=== PATIENT | female | born 1985 | race Caucasian/White ===

== ENCOUNTER 2020-06-10 12:59 | Emergency (ER) | payer OTHER, SELFPAY ==
--- NOTE | ~2020-06-10 | CT_ITS ---
EXAMINATION: CT brain wo con EXAM DATE: 06/10/2020 14:06 INDICATION: Headache at the base of skull, right side. TECHNIQUE: Spiral CT of the head was performed without contrast. Axial, coronal and sagittal images were reviewed. The dose-length product (DLP) for this examination was 605.33 mGy-cm. The exposure w as tailored according to patient size, and iterative reconstruction (ASIR) was used as additional dos e reduction technique. There is no prior study for comparison. FINDINGS: There is no acute intraparenchymal hemorrhage. No evidence of intraparenchymal brain mass lesion. No evidence of acute infarction. There is no mass effect or midline shift. The ventricles are normal in size. There are no extra-axial collections. There are no acute calvarial fractures. T he orbits are unremarkable. Soft tissue is unremarkable. The visualized sinuses and mastoid air ariela ls are well aerated. IMPRESSION: 1. Normal head CT examination. Reviewed, dictated and finalized at location B.
[2020-06-10 13:30] VITALS: BP 125/72; PULSE 80; RESP 20; TEMP 37; O2SAT 98
[2020-06-10] MEDS: diphenhydrAMINE HCl INJ 50 MG/ML VIAL 25 MG IV PUSH (13:58)
[2020-06-10] MEDS: KETOROLAC 30 MG/ML VIAL (*BKC) IV PUSH (13:59)
[2020-06-10] MEDS: SODIUM CHLORIDE 0.9% IV 1,000 ML 999 ML IV CONT (14:00)
[2020-06-10] MEDS: ONDANSETRON INJ 4 MG/2 ML VIAL IV PUSH (14:00)
--- NOTE | 2020-06-10 14:20 | ED.HA ---
HPI - Headache General Chief Complaint: Headache Stated Complaint: migraine for two days Time Seen by Provider: 06/10/20 13:03 Source: patient Mode of arrival: ambulatory Limitations: no limitations History of Present Illness HPI Narrative: this is a 34-year-old female presents with a typical migraine headache with throbbing but typically she has migraines with throbbing on the left side of her face this is currently on the right side with some mild light and sound sensitivity sensitivity with some nausea no vomiting headache is similar to her previous migraine headaches has taken [id number] pain medicine and her typical migraine prevention medicine medication with a minimal relief. Currently she rates her pain at about an 8/10, no known injury no neck pain or stiffness no shortness of breath no fever chills no abdominal pain. MD elicited complaint: headache and migraine Onset (ago): day(s) Onset description: gradually Location: frontal and occipital Severity: severe Pain scale (0-10): 8 Quality & Timing: throbbing and similar to previous headaches Exacerbating factors: movement of head/neck Relieving factors: nothing Context: occurred at rest Related Data Allergies Allergy/AdvReac Type Severity Reaction Status Date / Time No Known Allergies Allergy Unverified 04/04/19 12:34 Review of Systems Review of Systems: All systems reviewed & are unremarkable except as noted in HPI and below PMFSH Past Medical History Medical History (Updated 06/10/20 @ 14:25 by Yordan Guillen MD) Migraine Social History Social History Gender identity (if verbalized by the patient): Female Exam Const: General: no acute distress Orientation/consciousness: patient oriented x3 HENMT: Head: normal to inspection Eyes: Conjunctivae: conjunctivae normal Pupils: Equal, round and reactive pupils present EOM: EOMs intact bilaterally Direct Ophthalmoscopy: photophobia Neck: Neck: normal visual inspection Chest: Chest palpation & inspection: normal inspection of the chest GI: GI Palp: Yes Soft to palpation Percussion: Yes normal to percussion : General: Yes no CVA tenderness Skin: General skin exam: normal color Rashes: no rashes Neuro: General: patient oriented x3, moves all extremities and no meningeal signs Psych: Appearance: grossly normal Course Course Emergency Course: a reassessment of patient with some relief of her symptoms with some Toradol, Benadryl and Zofran along with oxygen therapy. Reviewed results of her blood tests and her CT scan which reassured that they were negative. Vital Signs Vital signs: Vital Signs Temperature 37.0 C 06/10/20 13:30 Pulse Rate 80 06/10/20 13:30 Respiratory Rate 06/10/20 13:30 Blood Pressure 125/72 06/10/20 13:30 Pulse Oximetry 98 06/10/20 13:30 Temperature 37.0 C 06/10/20 13:30 Pulse Rate 80 06/10/20 13:30 Respiratory Rate 06/10/20 13:30 Blood Pressure 125/72 06/10/20 13:30 Pulse Oximetry 98 06/10/20 13:30 Critical Care Time Critical Care Time Critical Care Time: No Discharge Plan Discharge Clinical Impression: Migraine Qualifiers: Migraine type: unspecified Intractability: not intractable Patient Disposition: Home, Self-Care Condition: Stable Instructions: Antibiotic Form, Migraine Headache (ED), Acute Headache (ED) Additional Instructions: Take medicine as prescribed and follow-up with primary care physician within 1 week for further evaluation and treatment. Prescriptions: New tramadol [Ultram] 50 mg tablet 50 mg PO Q6H PRN (Reason: pain) Qty: 20 RF: 0 ondansetron HCl [Zofran] 4 mg tablet 4 mg PO Q6H PRN (Reason: nausea and vomiting) Qty: 10 RF: 0 Follow-up/Referrals: Polo Swann MD [Primary Care Provider] - Stand Alone Forms: Work/School Release IP Time of Disposition: 14:28
[2020-06-10 14:46] VITALS: BP 110/65; PULSE 67; RESP 20; O2SAT 100
== END 2020-06-10 14:58 | disposition home or self-care (01) ==
PROVIDERS: Emergency Provider Emergency Medicine; PCP Family Medicine
DX: G43.909 Migraine, unspecified, not intractable, without status migrainosus (principal)
CPT/HCPCS: 70450; 96361; 96374; 96375; 99283; 99284; J1200; J1885; J2405; J7030

== ENCOUNTER 2021-01-04 09:18 | Emergency (ER) | payer OTHER, SELFPAY ==
[2021-01-04 09:25] VITALS: BP 114/56; PULSE 91; RESP 18; TEMP 36.6; O2SAT 98
[2021-01-04] MEDS: SODIUM CHLORIDE 0.9% IV 1,000 ML 999 ML IV CONT (09:40)
[2021-01-04] MEDS: ONDANSETRON INJ 4 MG/2 ML VIAL IV PUSH (09:40)
--- NOTE | 2021-01-04 09:46 | ED.HA ---
HPI - Headache General Chief Complaint: Headache Stated Complaint: MIGRAINE Time Seen by Provider: 01/04/21 09:46 Source: patient Mode of arrival: ambulatory Limitations: no limitations History of Present Illness HPI Narrative: 35-year-old woman with a history migraines comes in today complaining of a bilateral frontal headache and occipital pain that started at approximately 6:00 a.m. this morning. She has had vomiting and has been unable to take her usual medication (oral sumatriptan). she denies any recent head injuries, and other than some nasal congestion that started 2 days ago she has no cough cold symptoms, fever, weakness or numbness. MD elicited complaint: migraine Pertinent past history: migraines Onset (ago): hour(s) (3) Onset description: gradually Location: frontal, occipital and retro-orbital Severity: severe Quality & Timing: throbbing Exacerbating factors: none Context: occurred at rest Associated symptoms: nausea, vomiting and photophobia Related Data Home Medications Medication Instructions Recorded Confirmed sumatriptan succinate 100 mg PO Q2H PRN 01/04/21 01/04/21 Allergies Allergy/AdvReac Type Severity Reaction Status Date / Time No Known Allergies Allergy Unverified 04/04/19 12:34 Review of Systems Review of Systems: All systems reviewed & are unremarkable except as noted in HPI and below Constitutional: Constitutional: Denies chills, Denies fever(s) and Denies weakness Eyes: Eyes: Denies change in vision and Reports photophobia ENT: Reports nasal congestion and Denies sore throat Cardiovascular: Cardiovascular: Denies chest pain and Denies radiating jaw, neck or arm pain Respiratory: Respiratory: Denies cough and Denies dyspnea Gastrointestinal: Gastrointestinal: Denies abdominal pain, Reports nausea and Reports vomiting Integumentary/Breasts: Skin/Breast: Denies pruritus, Denies erythema and Denies rash Neurologic: Denies vertigo, Denies dizziness and Denies syncope Hematologic/Lymphatic: Hematologic/Lymphatic: Denies easy bleeding and Denies easy bruising Allergic/Immunologic: Allergic/Immunologic: Denies lip swelling and Denies throat swelling [facility] Past Medical History Medical History (Updated 01/04/21 @ 09:56 by Edmund Bess MD) Migraine Social History Social History Smoking status: Never smoker Substance use: never Living arrangements: with family Gender identity (if verbalized by the patient): Female Exam Const: General: healthy appearing and alert Orientation/consciousness: patient oriented x3 Limitations: no limitations Other: Moderate acute distress. Photophobia. HENMT: Head: normal to inspection Ears: external ears normal, EAC's normal and Abnormal EAC present General nose exam: Normal nares present Face and sinus: normal facial exam Mouth: Yes moist mucous membranes abnormal Throat: posterior oropharynx normal Eyes: Conjunctivae: conjunctivae normal Pupils: Equal, round and reactive pupils present EOM: EOMs intact bilaterally Direct Ophthalmoscopy: photophobia Neck: Neck: normal visual inspection Other: Normal range of motion Resp: Effort & Inspection: normal respiratory effort and not labored Auscultation: clear to auscultation bilaterally, no rales, no rhonchi and no wheezes Cardio: Rate: regular rate Rhythm: regular rhythm Heart sounds: no murmurs Skin: General skin exam: normal color, no jaundice and no pallor Rashes: no rashes Neuro: General: patient oriented x3, moves all extremities, no focal motor deficits and CN's II-XI intact bilaterally Speech: normal speech Gait exam (Neuro): Normal gait present Extrem: General: normal to inspection and no clubbing, cyanosis or edema Psych: Appearance: grossly normal and well kempt Mental Status: mental status grossly normal Affect: normal affect Attitude: cooperative Thought content: Yes Normal thought tenisha
[2021-01-04] MEDS: SUMAtriptan SUCCINATE 6 MG/0.5 ML VIAL SUB-Q (09:56)
[2021-01-04 10:42] VITALS: BP 113/64; PULSE 74; RESP 16; O2SAT 98
== END 2021-01-04 10:42 | disposition home or self-care (01) ==
PROVIDERS: Emergency Provider Emergency Medicine; PCP Family Medicine
DX: R51.9 Headache, unspecified (principal)
CPT/HCPCS: 96361; 96372; 96374; 99283; 99284; J2405; J3030; J7030

== ENCOUNTER 2021-07-24 11:06 | Emergency (ER) | payer OTHER, SELFPAY ==
[2021-07-24 11:18] VITALS: BP 131/82; PULSE 89; RESP 12; TEMP 36.7; O2SAT 100
--- NOTE | 2021-07-24 11:34 | ED.EAR ---
HPI - Ear Problem General Chief complaint: Dizziness Stated complaint: HEARING LOSS R EAR/RINGING/DIZZY Time Seen by Provider: 07/24/21 11:34 Source: patient and RN notes reviewed Mode of arrival: ambulatory Limitations: no limitations History of Present Illness HPI Narrative: 35-year-old female who is 22 weeks presents with concern of muffled hearing on the right ear, tinnitus in the right ear. Reports history of allergy symptoms for which she takes Zyrtec daily, started taking Flonase with no improvement of your symptoms. Yesterday she began having room spinning dizziness when she moved her head a certain way or open and close her eyes quickly. She denies any thunderclap headache, any extremity, vision changes. Denies shortness of breath or cough. MD Complaint: ear pain and other (Dizziness) Related Data Home Medications Medication Instructions Recorded Confirmed sumatriptan succinate 100 mg PO Q2H PRN 01/04/21 07/24/21 magnesium 200 mg PO DAILY 07/24/21 07/24/21 [id number] fum-folic [id number] pkg PO 07/24/21 [Daily ] Allergies Allergy/AdvReac Type Severity Reaction Status Date / Time No Known Allergies Allergy Verified 07/24/21 11:20 Review of Systems Review of Systems: CONSTITUTIONAL: Denies malaise, chills, sweats, or fever. EYES: Denies visual changes, redness, or discharge. ENT: Reports rhinorrhea, congestion, ear fullness, decreased hearing, tinnitus. Denies sinus pain and sore throat. CARDIOVASCULAR: Denies chest pain, palpitations, or edema. RESPIRATORY: Denies cough. Denies dyspnea. GASTROINTESTINAL: Denies abdominal pain, nausea, vomiting, diarrhea SKIN: Denies rash or itching. MUSCULOSKELETAL: Denies myalgia. NEUROLOGIC: Denies headache. Reports dizziness, room spinning All systems reviewed & are unremarkable except as noted in HPI and below PMFSH Past Medical History Medical History (Updated 07/24/21 @ 11:53 by Marycarmen Gutierrez NP) Migraine Social History Social History Smoking status: Never smoker Substance use: never Gender identity (if verbalized by the patient): Female Comments At time of signature, agree with nursing past medical, surgical, social and family history. There is no relevant family history pertinent to the presenting complaint Exam Narrative: GENERAL: Well-appearing, well-nourished, and in no acute distress. HEAD: Normocephalic EYES: PERRLA, conjunctivae clear ENT: Nares clear, clear discharge. Mucous membranes moist. TM pearly santiago with sharp light reflex bilaterally; no tragal tenderness. Oropharynx not erythematous without lesions. Tonsils not enlarged and without exudate, no drooling, no hoarseness, no trismus, uvula midline. NECK: Supple. No lymphadenopathy CHEST: Clear to auscultation, breath sounds equal. No wheezing, rhonchi, rales, or stridor. No respiratory distress, speaks in full sentences. HEART: Regular rate and rhythm. No murmur heard. SKIN: Warm, dry, no rash. NEURO: Alert and oriented x3. No focal deficits, cranial nerves II through XII grossly intact. Hanny-Hallpike test positive, stronger on the left. PSYCH: Normal mood and affect Course Course Emergency Course: Discussed with patient limited diagnostic capability at the [facility], discussed transfer to emergency room for further evaluation given patient's state. Discussed risk and benefits. Patient chooses to be treated for likely vertigo and understands reasons to go the emergency room if symptoms change or worsen. Patient is aware of diagnosis, understands and agrees to treatment plan. Anticipatory guidance given. Patient agrees to follow-up as directed and is aware of reasons to seek care at the emergency department. Portions of this record may have been created with voice recognition software Vital Signs Vital signs: Vital Signs Temperature 98.1 F 07/24/21 11:18 Pulse Rate 89 07/24/21 11:18 Respirat
== END 2021-07-24 12:01 | disposition home or self-care (01) ==
PROVIDERS: Emergency Provider Nurse Practitioner; PCP Family Medicine
DX: H69.91 Unspecified Eustachian tube disorder, right ear (principal); H81.13 Benign paroxysmal vertigo, bilateral
CPT/HCPCS: 99213; G0463

== ENCOUNTER 2021-11-10 05:50 | Inpatient (IN) | payer OTHER, SELFPAY ==
[2021-11-10] VITALS (138 sets, daily range): BP systolic 98–162; BP diastolic 53–129; PULSE 71–162; RESP 16–18; TEMP 36.1–37.2; O2SAT 98–100; BMI 32.5
--- OUTSIDE RECORDS SUMMARY | 2021-11-10 05:56 | XMS_ITS | Encounter Summary ---
:1985 Author Care Team Providers Name Role Phone Polo Swann Primary Care Provider [phone] Reason for Visit None recorded. Assessment and Plan 1. Benign essential hypertension complicating AND/OR reason for care during ? non-stress test Discussion Note: None recorded.Patient educational handouts: No information available. Plan of Care Reminders Provider Appointments Ob Routine Jacob Key 11/11/2021 MD Michael 9:45AM ? Ob Routine Eulalio Key 11/18/2021 MD Michael 9:45AM ? Ob Routine Lupe Scales, 11/25/2021 CNM 10:45AM ? Ob Routine Eulalio Key 12/02/2021 MD Michael 9:15AM Lab None ? ? recorded. Referral None ? ? recorded. Procedures None ? ? recorded. Surgeries None ? ? recorded. Imaging Non-stress [place] Test 10/28/2021 Medications Name Start Date ? ? metoclopramide 10 mg tablet ? Take 1 tablet 4 times a day by oral route. ?
--- OUTSIDE RECORDS SUMMARY | 2021-11-10 05:56 | XMS_ITS | Encounter Summary ---
:1985 Author Care Team Providers Name Role Phone Polo Swann Primary Care Provider [phone] Reason for Visit None recorded. Assessment and Plan 1. Elevated blood-pressure readi ng without diagnosis of hypertension ? non-stress test Discussion Note: None recorded.Patient [...] ? recorded. Imaging Non-stress [place] Test 11/01/2021 Medications Name Start Date ? ? metoclopramide 10 mg tablet ? Take 1 tablet 4 times a day by oral route. ? sumatriptan 100 mg tablet ?
--- OUTSIDE RECORDS SUMMARY | 2021-11-10 05:56 | XMS_ITS | Encounter Summary ---
:1985 Author Care Team Providers Name Role Phone Polo Swann Primary Care Provider [phone] Reason for Visit None recorded. Assessment and Plan 1. -induced hypertensio n ? non-stress test Discussion Note: None recorded.Patient [...] ? recorded. Imaging Non-stress [place] Test 10/25/2021 Medications Name Start Date ? ? metoclopramide 10 mg tablet ? Take 1 tablet 4 times a day by oral route. ? sumatriptan 100 mg tablet ? Tylenol
--- OUTSIDE RECORDS SUMMARY | 2021-11-10 05:56 | XMS_ITS | Encounter Summary ---
:1985 Author Care Team Providers Name Role Phone Polo Swann Primary Care Provider [phone] Reason for Visit OB visit Assessment and Plan Assessment Note Patient is ___weeks . Discu ssed plan. 1. Routine care Discussion Note: None recorded.Patient educational handouts: No [...] recorded. Surgeries None ? ? recorded. Imaging None ? ? recorded. Medications Name Start Date ? ? metoclopramide 10 mg tablet ? Take 1 tablet 4 times a day by oral route. ? sumatriptan 100 mg tablet ? Tylenol
--- OUTSIDE RECORDS SUMMARY | 2021-11-10 05:56 | XMS_ITS | Encounter Summary ---
:1985 Author Care Team Providers Name Role Phone Polo Swann Primary Care Provider [phone] Reason for Visit OB visit Assessment and [...]
--- OUTSIDE RECORDS SUMMARY | 2021-11-10 05:56 | XMS_ITS | Encounter Summary ---
:1985 Author Care Team Providers Name Role Phone Polo Swann Primary Care Provider [phone] Reason for Visit OB visit OB [id number] EDC 11/30/2021 LMP 02/23/2021 Assessment and Plan Assessment Note Patient is _24__weeks . Dis cussed plan. 1. Routine care Discussion Note: None [...]
--- OUTSIDE RECORDS SUMMARY | 2021-11-10 05:56 | XMS_ITS | Encounter Summary ---
:1985 Author Care Team Providers Name Role Phone Polo Swann Primary Care Provider [phone] Reason for Visit OB visit Assessment and [...]
--- OUTSIDE RECORDS SUMMARY | 2021-11-10 05:56 | XMS_ITS | Encounter Summary ---
:1985 Author Care Team Providers Name Role Phone Polo Swann Primary Care Provider [phone] Reason for Visit NST [id number] EDC 11/30/2021 LMP 02/23/2021 Assessment and Plan 1. -induced hypertensio n [...] ? recorded. Imaging Non-stress [place] Test 11/08/2021 Medications Name Start Date ? ? metoclopramide 10 mg tablet ? Take 1 tablet 4 times a day by oral route. ? sumatriptan 100 mg tablet ?
--- OUTSIDE RECORDS SUMMARY | 2021-11-10 05:56 | XMS_ITS | Encounter Summary ---
:1985 Author Care Team Providers Name Role Phone Polo Swann Primary Care Provider [phone] Reason for Visit None recorded. Assessment and Plan 1. Uterine size for dates discre pancy ? US, obstetric, follow-up Discussion Note: None recorded.Patient educational handouts: No [...] recorded. Surgeries None ? ? recorded. Imaging , [place] Obstetric, Follow-up 09/21/2021 Medications Name Start Date ? ? metoclopramide 10 mg tablet ? Take 1 tablet 4 times a day by oral route. ? sumatriptan 100 mg tablet ? Tylenol
--- OUTSIDE RECORDS SUMMARY | 2021-11-10 05:56 | XMS_ITS | Encounter Summary ---
:1985 Author Care Team Providers Name Role Phone Polo Swann Primary Care Provider [phone] Reason for Visit None recorded. Assessment and [...] ? recorded. Imaging Non-stress [place] [facility] 11/04/2021 Medications Name Start Date ? ? metoclopramide 10 mg tablet ? Take 1 tablet 4 times a day by oral route. ? sumatriptan 100 mg tablet ?
--- OUTSIDE RECORDS SUMMARY | 2021-11-10 05:56 | XMS_ITS ---
:1985 Author Care Team Providers Name Role Phone ZOEY GRAHAM Primary Care Provider [phone] Allergies Code Code System Name Reaction Severity Status Onset NKDA ? Medications Name Status Start Date Stop Date ? ? amoxicillin 875 mg-potassium clavulanate 125 mg tablet Completed ? 04/20/2021 TAKE 1 TABLET BY MOUTH EVERY 12 HOURS Chantix Continuing Month Box 1 mg tablet Completed ? 04/20/2021 TAKE 1 TABLET BY MOUTH WITH GLASS OF WATER 2 TIMES PER DAY AFTE R MEALS Chantix Starting Month Box 0.5 mg (11)-1 mg (42) tablets in dose pack Completed ? 04/20/2021 TAKE DIRECTED divalproex 250 mg tablet,delayed release Completed ? 04/20/2021 TAKE 1 TABLET BY MOUTH TWICE A DAY Fioricet 50 mg-300 mg-40 mg capsule Completed ? 08/10/2021 take 1 capsule by oral route every 4-6 hours as needed not to exceed 6 capsules per 24hrs Imitrex 6 mg/0.5 mL subcutaneous solution Completed ? 04/20/2021 inject 0.5 milliliter by subcutaneous r oute once; may repeat in 1 hour if pain returns/increases in severity; (max2 doses/24 hours) Macrobid 100 mg capsule Completed 01/20/2019 05/26/20 19 take 1 capsule by oral route every 12 hours with food metoclopramide 10 mg tablet Active ? Not available ondansetron 4 mg disintegrating tablet Completed ? 08/10/2021 DISSOLVE 1 TABLET BY MOUTH EVERY 6 HOURS NEEDED FOR NAUSEA A ND VOMITING prednisone 20 mg tablet Completed ? 04/20/20 21 TAKE TWO TABLETS BY MOUTH ONCE DAILY Active ? Not available 28 mg iron-800 mcg Completed ?
--- OUTSIDE RECORDS SUMMARY | 2021-11-10 05:56 | XMS_ITS | Encounter Summary ---
:1985 Author Care Team Providers Name Role Phone Polo Swann Primary Care Provider [phone] Reason for Visit OB visit Assessment and Plan Assessment Note Patient is ___weeks . Discu ssed plan. 1. Migraine ? Reglan 10 mg tablet Discussion Note: None recorded.Patient educational handouts: No [...]
--- OUTSIDE RECORDS SUMMARY | 2021-11-10 05:56 | XMS_ITS | Encounter Summary ---
:1985 Author Care Team Providers Name Role Phone Polo Swann Primary Care Provider [phone] Reason for Visit None recorded. Assessment and Plan 1. Excessive growth affect ing management of mother ? US, obstetric, follow-up Discussion Note: None [...] recorded. Surgeries None ? ? recorded. Imaging [facility] Obstetric, Follow-up 10/19/2021 Medications Name Start Date ? ? metoclopramide 10 mg tablet ? Take 1 tablet 4 times a day by oral route. ? sumatriptan 100 mg tablet ?
--- OUTSIDE RECORDS SUMMARY | 2021-11-10 05:56 | XMS_ITS | Encounter Summary ---
:1985 Author Care Team Providers Name Role Phone Polo Swann Primary Care Provider [phone] Reason for Visit OB visit 32wks Assessment and Plan Assessment Note Patient is [...]
--- OUTSIDE RECORDS SUMMARY | 2021-11-10 05:56 | XMS_ITS | Encounter Summary ---
:1985 Author Care Team Providers Name Role Phone Polo Swann Primary Care Provider [phone] Reason for Visit OB visit Assessment and Plan 1. Elevated blood-pressure readi ng without diagnosis of hypertension ? CMP, serum or plasma ? protein:creatinine ratio, urine ? uric acid, serum or plasma 2. Routine care Discussion Note: None recorded.Patient educational handouts: No information available. Plan of Care Reminders Provider Appointments Ob Routine Jacob Key 11/11/2021 MD Michael 9:45AM ? Ob Routine Eulalio Key 11/18/2021 MD Michael 9:45AM ? Ob Routine Lupe Scales 11/25/2021 CNM 10:45AM ? Ob Routine Elzaf casey Key 12/02/2021 MD Michael 9:15AM Lab CMP, Serum [facility] or Plasma 09/07/2021 Hospital (Lab) ? [facility] Protein:creatinine 09/07/2021 Hospital (Lab ) Ratio, Urine ? Uric Acid, [facility] Serum or Plasma 09/07/2021 Hospital (Lab) Referral None ? ? recorded. Procedures None ? ? rec
[2021-11-10] MEDS: LACTATED RINGERS 1,000 ML 125 ML IV CONT ×3 (06:45→12:34)
[2021-11-10] MEDS: OXYTOCIN 30 UNITS/NS 500 ML 30 UNITS/500 ML BAG IV CONT (06:45)
[2021-11-10 06:53] LABS: Basophils Percent Auto 0.4 % (0.2-1.2); Eosinophils Absolute Auto 0.1 K/mm3 (0-0.3); Eosinophils Percent Auto 0.7 % (0-4.4); Hematocrit 33.8 % (37.0-47.0); Hemoglobin 11.1 g/dL (12.0-15.0); Immature Granulocyte Absolute 0.01 K/mm3 (0.00-0.031); Immature Granulocyte Percent A 0.1 % (0-0.5); Lymphocytes Percent Auto 21.5 % (18.3-44.2); Mean Corpuscular HGB Conc 32.8 g/dl (32-36); Mean Corpuscular Hemoglobin 28.5 pg (26-34); Mean Corpuscular Volume 86.7 fl (80-100); Mean Platelet Volume 10.4 fl (7.4-10.4); Monocytes Absolute Auto 0.5 K/mm3 (0.1-0.6); Monocytes Percent Auto 6.1 % (2.6-8.5); Neutrophils Percent Auto 71.2 % (45.5-73.1); Platelet Count Result 186 k/mm3 (150-375); Red Cell Distribution Width 13.8 % (11.5-14.5); White Blood Count 8.4 K/mm3 (4.5-10.0)
[2021-11-10 06:59] LABS: Alanine Aminotransferase 13 U/L (4-35); Albumin Level 3.7 g/dL (3.5-5.1); Alkaline Phosphatase 127 U/L (38-126); Anion Gap 6 mmol/L (8-16); Aspartate Amino Transferase 28 U/L (14-36); Bilirubin,Total 0.4 mg/dL (0.2-1.3); Blood Urea Nitrogen 5 mg/dL (7-17); Calcium 8.7 mg/dL (8.4-10.2); Carbon Dioxide 22 mmol/L (22-30); Chloride 107 mmol/L (98-107); Estimated CRCL calculation 166 ml/min; Estimated Glomerular Filt Rate > 60; Glucose 92 mg/dL (65-110); Potassium 3.6 mmol/L (3.4-5.0); Sodium 135 mmol/L (137-145)
[2021-11-10 07:04] LABS: Uric Acid 4.7 mg/dL (2.5-7.5)
--- NOTE | 2021-11-10 07:34 | WPDANESEPP ---
Anes - Eval Pre Procedure Procedure: Labor Epidural Date/Time: 11/10/21 07:34 Surgeon: Michael Preop Diagnosis: Labor Pain Pre Op Diagnosis: IOL Patient Data Age: 36 Gender: F Height: 1.75 m Weight: 100 kg Last Vital Signs Pulse 109 H 11/10/21 07:34 BP 123/71 11/10/21 07:34 Pulse Ox 99 11/10/21 07:32 Allergies Allergy/AdvReac Type Severity Reaction Status Date / Time No Known Allergies Allergy Verified 11/08/21 12:32 Home Medications Medication Instructions Recorded Confirmed Type ondansetron 4 mg PO Q6H PRN #10 tablet 01/04/21 11/10/21 Rx sumatriptan succinate 100 mg PO Q2H PRN 01/04/21 11/10/21 History magnesium 200 mg PO DAILY 07/24/21 11/10/21 History meclizine 25 mg PO TID PRN #14 tablet 07/24/21 11/10/21 Rx prenat.vits,oliver,[id number] 1 tablet PO DAILY 07/24/21 11/10/21 History [ Vitamin] Laboratory Tests 11/10/21 11/10/21 11/10/21 06:29 06:29 06:29 WBC 8.4 K/mm3 K/mm3 (4.5-10.0) RBC 3.90 M/mm3 L M/mm3 (4.2-5.4) Hgb 11.1 g/dL L g/dL (12.0-15.0) Hct 33.8 % L % (37.0-47.0) MCV 86.7 fl fl (80-100) MCH 28.5 pg pg (26-34) MCHC 32.8 g/dl g/dl (32-36) RDW 13.8 % % (11.5-14.5) Plt Count 186 k/mm3 k/mm3 (150-375) MPV 10.4 fl fl (7.4-10.4) Immature Gran % (Auto) 0.1 % % (0-0.5) Neut % (Auto) 71.2 % % (45.5-73.1) Lymph % (Auto) 21.5 % % (18.3-44.2) [place] % (Auto) 6.1 % % (2.6-8.5) Eos % (Auto) 0.7 % % (0-4.4) Baso % (Auto) 0.4 % % (0.2-1.2) Lymph # (Auto) 1.80 K/mm3 K/mm3 (0.9-3.2) [place] # (Auto) 0.5 K/mm3 K/mm3 (0.1-0.6) Eos # (Auto) 0.1 K/mm3 K/mm3 (0-0.3) Baso # (Auto) 0.0 K/mm3 K/mm3 (0.0-0.1) Abs Immat Gran (auto) 0.01 K/mm3 K/mm3 (0.00-0.031) Absolute Neuts (auto) 6.0 K/mm3 K/mm3 (1.3-6.7) Absolute Nucleated RBC 0.0 K/mm3 K/mm3 (0.0-0.012) Nucleated RBC % 0.0 % % (0.0-0.2) Sodium Potassium Chloride Carbon Dioxide Anion Gap BUN Creatinine Estim Creat Clear Calc Estimated GFR Glucose Uric Acid Cancelled Calcium Total Bilirubin AST ALT Alkaline Phosphatase Total Protein Albumin RPR Pending Blood Type Antibody Screen 11/10/21 11/10/21 06:29 06:29 WBC RBC Hgb Hct MCV MCH MCHC RDW Plt Count MPV Immature Gran % (Auto) Neut % (Auto) Lymph % (Auto) [place] % (Auto) Eos % (Auto) Baso % (Auto) Lymph # (Auto) [place] # (Auto) Eos # (Auto) Baso # (Auto) Abs Immat Gran (auto) Absolute Neuts (auto) Absolute Nucleated RBC Nucleated RBC % Sodium 135 mmol/L L mmol/L (137-145) Potassium 3.6 mmol/L mmol/L (3.4-5.0) Chloride 107 mmol/L mmol/L (98-107) Carbon Dioxide 22 mmol/L mmol/L (22-30) Anion Gap 6 mmol/L L mmol/L (8-16) BUN 5 mg/dL L mg/dL (7-17) Creatinine 0.50 mg/dL L mg/dL (0.7-1.0) Estim Creat Clear Calc 166 ml/min ml/min Estimated GFR > 60 (59 - ) Glucose 92 mg/dL mg/dL (65-110) Uric Acid 4.7 mg/dL mg/dL (2.5-7.5) Calcium 8.7 mg/dL mg/dL (8.4-10.2) Total Bilirubin 0.4 mg/dL mg/dL (0.2-1.3) AST 28 U/L U/L (14-36) ALT 13 U/L U/L (4-35) Alkaline Phosphatase 127 U/L H U/L (38-126) Total Protein 7.0 g/dL g/dL (6.3-8.2) Albumin 3.7 g/dL g/dL (3.5-5.1) RPR Blood Typ
--- NOTE | 2021-11-10 07:56 | WPDHPUPDATE1 ---
History and Physical Update Update Date/Time: 11/10/21 07:56 36-year-old female multiparous who is term. She presents for induction of labor. She has a favorable cervix-3 cm, 50%, -2, AROM was performed. The fluid is clear. History and Physical has been reviewed, including an updated exam of the patient. There are NO changes in the patient's condition. Risks, benefits, and alternatives have been discussed and questions answered. Patient agrees to proceed with procedure.
--- NOTE | 2021-11-10 14:40 | PM.OBPRVD ---
OB - Delivery Note Procedure Delivery date: 11/10/21 Events: Gestational Hypertension Induction method: AROM and Per Pitocin Protocol Delivery monitor: External FHT and Internal Uterine Route of delivery: Quantitative Blood Loss (ml): 250 Anesthesia type: Epidural Disposition: floor Baby Date of : 11/10/21 Time of : 14:27 Weeks of gestation at delivery: 37 Infant gender: Female Weight (pounds): 6 Weight (ounces): 11 Placenta delivery description: Spontaneous score one minute: 8 score ten minutes: 8
[2021-11-10] MEDS: OXYTOCIN 30 UNITS/NS 500 ML 30 UNITS/500 ML BAG 125 UNITS IV CONT (14:43)
--- NOTE | 2021-11-10 17:00 | OBPPTRN ---
Patient transferred to post room # 287 via wheelchair. Oriented to unit, room, information board, rooming in, admission packet and security measures. Patient verbalizes understanding.
[2021-11-10] MEDS: DOCUSATE SODIUM 100 MG CAPSULE PO (17:17)
[2021-11-10] MEDS: IBUPROFEN 600 MG TABLET PO ×2 (17:17→23:40)
[2021-11-11 05:25] VITALS: BP 110/70; PULSE 81; RESP 16; TEMP 36.7
[2021-11-11] MEDS: ACETAMINOPHEN 325 MG TABLET 650 MG PO (05:28)
[2021-11-11] MEDS: IBUPROFEN 600 MG TABLET PO (05:28)
[2021-11-11 05:33] LABS: Hematocrit 29.8 % (37.0-47.0); Hemoglobin 9.7 g/dL (12.0-15.0)
[2021-11-11 07:15] VITALS: BP 118/75; PULSE 76; RESP 18; TEMP 36.4; O2SAT 98
--- NOTE | 2021-11-11 07:50 | PM.OBPNVD ---
OB - PN: Subj Subjective Date/time seen: 11/11/21 07:50 Patient comments: no complaints baby status: doing well OB - PN: Obj Data Labs CBC & Chem 7: 11/11/21 05:21 11/10/21 06:29 Labs: Laboratory Results - last 24 hr 11/11/21 05:21 Hgb 9.7 L Hct 29.8 L OB - PN A/P Plan day: 1 Plan: routine care and discharge home Time Spent With Patient Time: Total time spent is greater than 50% in coordination of care (as documented) at patient's floor/unit and/or counseling patient: Review of Systems Review of Systems: All systems reviewed & are unremarkable except as noted in HPI and below Exam Const: General: cooperative, healthy appearing and comfortable
--- NOTE | 2021-11-11 07:52 | PM.OBDSVD ---
DS: Admitting Diagnosis Discharge Date 09/10/22 Admitting Diagnosis GHTN OB - DS: Summary OB Procedures : PIH Mgmt OB Procedures Intrapartum: Spontaneous Vag Delivery OB Procedures: : None Time Spent with Patient Time attestation: Total time spent providing and/or coordinating discharge services: DS: Data Data Completed and Pending Labs on day of discharge: Labs from last 24 hours 11/11/21 05:21 Hgb 9.7 L Hct 29.8 L Discharge Plan Discharge Attending physician on discharge: Rozina Rodriguez Discharging Clinician: Lupe Scales Patient Disposition: Home, Self-Care Activity: pelvic rest Diet: regular Patient Instructions: Antibiotic Form Stand Alone Forms: General Discharge Information Follow-up/Referrals: Rozina Rodriguez MD [Physician] - 1 Week Discharge Medications: New ibuprofen 600 mg Tablet 600 mg PO Q6H PRN (Reason: Cramping) Qty: 30 RF: 0 Continued sumatriptan succinate 100 mg tablet 100 mg PO Q2H PRN (Reason: Migraine Headache) RF: 0 Vitamin Tablet 1 tablet PO DAILY RF: 0 Discontinued ondansetron 4 mg tablet,disintegrating 4 mg PO Q6H PRN (Reason: nausea and vomiting) Qty: 10 RF: 0 magnesium 200 mg Tablet 200 mg PO DAILY RF: 0 meclizine 25 mg tablet 25 mg PO TID PRN (Reason: dizziness) Qty: 14 RF: 0 Date of admission: 11/10/21 05:50 Primary Care Provider: Polo Swann Admitting Provider: Rozina Rodriguez Attending physician on admission: Rozina Rodriguez Condition: Stable
[2021-11-11] MEDS: MULTIVIT/MIN/PREN/FOL AC/IRON TABLET 1 TAB PO (08:35)
[2021-11-11] MEDS: POLYSACCHARIDE IRON COMPLEX 150 MG CAPSULE PO (08:35)
[2021-11-11] MEDS: DOCUSATE SODIUM 100 MG CAPSULE PO (08:35)
--- NOTE | 2021-11-11 11:52 | PC.NURSE ---
0834 - Introductions were made and mother led the conversation with regards to her plan at this time to pump her breast and feed her infant when she can at [facility]. Reminded parents to use good handwashing to prevent infection. Reviewed community resources and outpatient services as listed in the mom and baby guide/[facility] website and at [facility]. Mother voiced understanding of information shared. Reported to primary RN.
--- NOTE | 2021-11-11 11:54 | PC.NURSE ---
0840 - Breast pump provided prior to RN's shift due to transferred. Reviewed information regarding pump care, hand washing, nipple care and pumping 8 times in 24 hours (1-2 at night) for 10-15 minutes.
[2021-11-14 08:03] LABS: Rapid Plasma Reagin Non-Reactive (NonReactive)
== END 2021-11-11 09:08 | disposition home or self-care (01) | DRG 807 ==
LOC: ANHLDR 05:53 → ANHOB2 17:05
PROVIDERS: Admitting Provider Obstetrics & Gynecology; PCP Family Medicine; Visit Provider Obstetrics & Gynecology
DX: O13.4 Gestational [pregnancy-induced] hypertension without significant proteinuria, complicating childbirth (principal); Z37.0 Single live birth; Z3A.37 37 weeks gestation of pregnancy
CPT/HCPCS: 36415; 80053; 84550; 85014; 85018; 85025; 86592; 86850; 86900; 86901; A9270; J2590; J2795; J7120

== ENCOUNTER 2022-09-14 11:00 | Emergency (ER) | payer OTHER, SELFPAY ==
--- NOTE | ~2022-09-14 | XR_ITS ---
EXAMINATION: XR chest 1V portable INDICATION: Cough and shortness of breath TECHNIQUE: Portable AP chest at 1139 hours COMPARISON: None available FINDINGS: The lungs are free of acute opacities. No pleural effusion or pneumothorax. The cardiomedia stinal silhouette is normal. IMPRESSION: 1. No acute cardiopulmonary abnormality. Reviewed, dictated and finalized at location L. ER TANK OPERATOR
--- NOTE | 2022-09-14 11:15 | ED.GENADULT ---
HPI - General Adult General Chief complaint: Allergic Reaction Stated complaint: ALLERGIC REACTION Time Seen by Provider: 09/14/22 11:09 History of Present Illness HPI narrative: the patient is a 36-year-old woman with a history of migraines, who since April of this year, has noticed, when she takes Imitrex 50 mg orally, she develops some symptoms including muscle fatigue, the skin sensation of being on fire, tachycardia, and dizziness. Last dose of Imitrex was several days ago for migraine. Today, she took a dose of Imitrex again this morning. She had recurrence of her same symptoms, of muscle fatigue, skin on fire, tachycardia, dizziness. She also had a sensation of tightening in her throat, and itchiness in her face and forearms with an itchy throat and a cough. She called her primary care provider referred here for further evaluation due to the allergic reaction. There is no urticaria or hives or rash. No chest pain. Does have difficulty breathing, whereby she has abnormal respirations where she gasps for air occasionally then breathes normally. No vomiting. No abdominal pain. Related Data Home Medications Medication Instructions Recorded Confirmed sumatriptan succinate 100 mg tablet 100 mg PO Q2H PRN Migraine Headache 01/04/21 11/10/21 prenat.vits,oliver,lnu-klwl-onpzr 1 tablet PO DAILY 07/24/21 11/10/21 Allergies Allergy/AdvReac Type Severity Reaction Status Date / Time No Known Allergies Allergy Verified 11/08/21 12:32 Review of Systems Review of Systems: All systems reviewed & are unremarkable except as noted in HPI and below Constitutional: Constitutional: Reports no additional constitutional complaints, Denies anorexia, Denies body ache(s), Denies chills, Denies excessive sweating, Denies fatigue, Denies fever(s), Denies frequent falls, Denies headache(s), Denies malaise and Denies poor appetite Eyes: Eyes: Reports no additional eye complaints, Denies blurry vision, Denies change in vision, Denies irritation, Denies itchy eyes and Denies photophobia ENT: Reports system reviewed and no additional complaints, except as documented, Reports Normal hearing present, Denies change in voice, Denies dysphagia, Denies vertigo, Reports dizziness, Denies ear discharge, Denies headache(s), Denies hearing loss, Denies hoarseness, Denies nasal congestion, Denies neck pain, Denies sinus pressure, Denies sore throat and Denies throat swelling Cardiovascular: Cardiovascular: Reports no additional cardiovascular complaints, Denies chest pain, Denies syncope, Denies rapid heart rate, Denies irregular heart rhythm, Denies leg edema, Denies dyspnea and Denies slow heart rate Respiratory: Respiratory: Reports no additional respiratory complaints, Reports cough, Reports dyspnea, Denies stridor and Denies wheezing Gastrointestinal: Gastrointestinal: Reports no additional gastrointestinal complaints, Denies abdominal pain, Denies melena, Denies hematochezia, Denies dysphagia, Denies diarrhea, Denies nausea and Denies vomiting Genitourinary: Genitourinary: Denies hematuria, Denies urinary frequency, Denies dysuria, Denies flank pain and Denies urinary urgency Musculoskeletal: Musculoskeletal: Reports no additional musculoskeletal complaints, Denies abnormal gait, Denies back pain, Denies myalgias, Denies arthralgias, Denies joint swelling, Denies limited range of motion, Denies muscle cramps, Denies muscle weakness, Denies neck pain and Denies numbness Integumentary/Breasts: Skin/Breast: Reports system reviewed and no additional complaints, except as docu, Denies breast pain, Denies change in pigmentation, Reports pruritus, Denies erythema and Denies wounds Neurologic: Reports system reviewed and no additional complaints, except as documented, Reports Normal hearing present, Denies Abnormal speech present, Denies abnormal gait, Denies confusion, Denies vertigo, Denies dizziness, Denies syncope, Denies frequent falls, Denies headache(s), Denies foc
[2022-09-14] MEDS: diphenhydrAMINE HCl INJ 50 MG/ML VIAL IV PUSH (11:21)
[2022-09-14] MEDS: FAMOTIDINE 20 MG/2 ML VIAL IV PUSH (11:21)
[2022-09-14] MEDS: methylPREDNISolone SOD SUCC 125 MG VIAL IV PUSH (11:21)
[2022-09-14 11:32] VITALS: BP 135/86; PULSE 92; RESP 20; TEMP 36.7; O2SAT 98
[2022-09-14 11:40] LABS: Basophils Absolute Auto 0.04 K/mm3 (0.00-0.10); Basophils Percent Auto 0.7 % (0.0-1.0); Eosinophils Absolute Auto 0.12 K/mm3 (0.02-0.50); Hematocrit 41.8 % (35.0-49.0); Hemoglobin 13.4 g/dL (12.0-15.0); Immature Granulocyte Absolute 0.01 K/mm3 (0.00-0.00); Immature Granulocyte Percent A 0.2 % (0.0-0.0); Lymphocytes Absolute Auto 2.17 K/mm3 (1.10-4.50); Lymphocytes Percent Auto 36.5 % (18.0-42.0); Mean Corpuscular HGB Conc 32.1 g/dL (32.0-36.0); Mean Corpuscular Hemoglobin 28.1 pg (27.0-31.0); Mean Corpuscular Volume 87.6 fL (78.0-102.0); Mean Platelet Volume 10.3 fl (9.2-11.8); Monocytes Absolute Auto 0.27 K/mm3 (0.10-0.90); Monocytes Percent Auto 4.5 % (2.0-11.0); Neutrophils Absolute Auto 3.3 K/mm3 (1.7-7.2); Neutrophils Percent Auto 56.1 % (50.0-70.0); Platelet Count Result 303 K/mm3 (150-420); Red Blood Count 4.77 M/mm3 (4.20-5.40); Red Cell Distribution Width 13.1 % (11.6-14.4)
[2022-09-14 12:00] VITALS: BP 114/79; PULSE 71; RESP 20; O2SAT 96
[2022-09-14 12:07] LABS: Alanine Aminotransferase 18 U/L (14-59); Albumin Level 4.2 g/dL (3.4-5.0); Alkaline Phosphatase 68 U/L (46-116); Anion Gap 7 mmol/L (8-16); Aspartate Amino Transferase 13 U/L (15-37); Bilirubin,Total 0.4 mg/dL (0.00-1.00); Blood Urea Nitrogen 13 mg/dL (7-18); Calcium 9.4 mg/dL (8.5-10.1); Carbon Dioxide 29 mmol/L (21-32); Chloride 107 mmol/L (98-108); Estimated CRCL calculation 103 ml/min; Estimated Glomerular Filt Rate > 60; Glucose 101 mg/dL (70-99); Osmolality Calculated 296 mOsm/kg (285-295); Potassium 4.2 mmol/L (3.5-5.1); Sodium 143 mmol/L (136-145); Total Protein 7.5 g/dL (6.4-8.2)
[2022-09-14 12:33] LABS: Strep Group A RT-PCR NOT DETECTED (Negative)
[2022-09-14 12:45] VITALS: BP 111/63; PULSE 74; RESP 20; O2SAT 96
[2022-09-14 12:46] LABS: Influenza A QL RT-PCR Negative (Negative); Influenza B QL RT-PCR Negative (Negative); RSV RNA, RT-PCR Negative (Negative); SARS-CoV-2 RNA PCR Negative (Negative)
[2022-09-14 13:37] VITALS: BP 114/83; PULSE 77; RESP 20; TEMP 36.7; O2SAT 99
--- NOTE | 2022-09-14 13:39 | PC.NURSE ---
1230 PT IS NOT ITCHING ANY MORE AND STARTING TO FEEL BETTER INFORMED HER THAT WE WILL CONTINUE TO WATCH HER FOR A LITTLE LONGER TO MAKE SURE THE ITCHING IS NOT COMING BACK
== END 2022-09-14 13:40 | disposition home or self-care (01) ==
PROVIDERS: Emergency Provider Emergency Medicine; PCP Family Medicine
DX: L29.9 Pruritus, unspecified (principal); T39.8X5A Adverse effect of other nonopioid analgesics and antipyretics, not elsewhere classified, initial encounter; Z20.822 Contact with and (suspected) exposure to COVID-19
CPT/HCPCS: 36415; 71045; 80053; 85025; 87637; 87651; 96374; 96375; 99284; J1200; J2930

== ENCOUNTER 2023-02-15 20:25 | Emergency (ER) | payer OTHER, MEDICAID, SELFPAY ==
--- NOTE | ~2023-02-15 | XR_ITS ---
EXAMINATION: XR ankle LT min 3V DATE: 02/15/2023 20:43 INDICATION: Medial left knee pain post injury 8 days prior TECHNIQUE: Anteroposterior, oblique, mortise, and lateral views of the left ankle were obtained. COMPARISON: None. FINDINGS: Alignment is normal. No fracture. Joint spaces are normal. Nonaggressive appearing 1.4 cm lytic lesio n with narrow zone of transition defined by thin sclerotic margins at the medial malleolus. No eviden t internal matrix. No periosteal reaction or other aggressive features. Soft tissues are unremarkable . No ankle joint effusion. IMPRESSION: 1. No acute osseous abnormality. Line 2. Likely benign nonaggressive appearing lytic lesion at the left medial malleolus. Given appearance would favor a geode over either enchondroma or giant cell tumor. Reviewed, dictated and finalized at location A. IMPRESSION: 1. No acute osseous abnormality. Line 2. Likely benign nonaggressive appearing lytic lesion at the left medial malleo ezio. Given appearance would favor a geode over either enchondroma or giant cell tumor.
[2023-02-15 20:28] VITALS: BP 125/77; PULSE 94; RESP 16; TEMP 37; O2SAT 98
--- NOTE | 2023-02-15 20:45 | ED.LOWEXIN ---
HPI - Extremity Injury (Lower) General Chief Complaint: Extremity Injury, Lower Stated Complaint: Twisted Ankle Source: patient Mode of arrival: ambulatory Limitations: no limitations History of Present Illness HPI Narrative: this is a 37-year-old female that twisted her ankle approximately a week ago while vacationing in [place], currently tried some [id number] medications with minimal relief pain level is not substantial but has some tenderness when weight-bearing and with palpation. Otherwise no numbness or tingling no swelling. complaint: ankle injury Onset (ago): week(s) Injury: Left: ankle ( tenderness with movement and palpation) Type of Injury: inversion Place: street/outdoors Severity: mild Related Data Home Medications Medication Instructions Recorded Confirmed sumatriptan succinate 100 mg tablet 100 mg PO Q2H PRN Migraine Headache 01/04/21 02/15/23 Allergies Allergy/AdvReac Type Severity Reaction Status Date / Time pantoprazole Allergy Rash Verified 02/15/23 20:27 topiramate AdvReac Vomiting Verified 02/15/23 20:28 Review of Systems Review of Systems: All systems reviewed & are unremarkable except as noted in HPI and below PMFSH Past Medical History Medical History (Updated 02/15/23 @ 20:47 by Yordan Guillen MD) Migraine Family History Family History Father Cerebrovascular accident Renal failure Diabetes mellitus Hypertension Mother Epilepsy Ovarian cancer Social History Social History Smoking status: Never smoker Second hand tobacco smoke exposure: Yes Substance use: never Living arrangements: with family Gender identity (if verbalized by the patient): Female Spiritual care concerns: No Exam Const: General: healthy appearing Nutritional Appearance: well nourished Orientation/consciousness: patient oriented x3 Limitations: no limitations HENMT: Head: normal to inspection Eyes: Conjunctivae: conjunctivae normal Pupils: Equal, round and reactive pupils present Neck: Neck: normal visual inspection Chest: Chest palpation & inspection: normal inspection of the chest Resp: Effort & Inspection: normal respiratory effort Cardio: Rate: regular rate Rhythm: regular rhythm GI: GI Palp: Yes Soft to palpation : General: Yes bladder normal to palpation Skin: General skin exam: normal color Rashes: no rashes Neuro: General: patient oriented x3 Cranial nerves: Yes Nystagmus not present Speech: normal speech Extrem: General: normal to inspection Psych: Mental Status: mental status grossly normal Course Course Emergency Course: X-ray performed and reviewed with patient which shows no acute fractures, Cordell wrap was applied and advised patient to take Tylenol or Motrin. described x-ray results with patient and advised follow-up with her primary for further evaluation. Vital Signs Vital signs: Vital Signs Temperature 37.0 C 02/15/23 20:28 Pulse Rate 94 02/15/23 20:28 Respiratory Rate 16 02/15/23 20:28 Blood Pressure 125/77 02/15/23 20:28 Pulse Oximetry 98 02/15/23 20:28 Oxygen Delivery Room Air 02/15/23 20:28 Temperature 37.0 C 02/15/23 20:28 Pulse Rate 94 02/15/23 20:28 Respiratory Rate 16 02/15/23 20:28 Blood Pressure 125/77 02/15/23 20:28 Pulse Oximetry 98 02/15/23 20:28 Oxygen Delivery Room Air 02/15/23 20:28 Critical Care Time Critical Care Time Critical Care Time: No Discharge Plan Discharge Clinical Impression: Ankle sprain and strain Patient Disposition: Home, Self-Care Condition: Stable Instructions: Antibiotic Form, Ankle Sprain (ED) Additional Instructions: Advised to continue Cordell wrap can use Tylenol Motrin as needed and follow up with primary within 1 week for further evaluation and treatment. Prescriptions: No Action sumatriptan succi
== END 2023-02-15 21:20 | disposition home or self-care (01) ==
LOC: CHSED 21:11
PROVIDERS: Emergency Provider Emergency Medicine; PCP Family Medicine
DX: S93.402A Sprain of unspecified ligament of left ankle, initial encounter (principal); S96.912A Strain of unspecified muscle and tendon at ankle and foot level, left foot, initial encounter; X50.0XXA Overexertion from strenuous movement or load, initial encounter
CPT/HCPCS: 73610; 99283

== ENCOUNTER 2023-05-05 14:57 | Outpatient (CLI) | payer OTHER, MEDICAID, SELFPAY ==
[2023-05-05 15:33] LABS: TB Skin Test Erythema 0 mm; TB Skin Test Induration 0 mm (0-10); TB Skin Test Interpretation Negative (Negative); TB Skin Test Site Right Arm
== END 2023-05-05 14:58 | disposition home or self-care (01) ==
LOC: CHSLAB 14:58
PROVIDERS: PCP Family Medicine; Visit Provider Family Medicine
DX: Z11.1 Encounter for screening for respiratory tuberculosis (principal)
CPT/HCPCS: 36415; 86580

== ENCOUNTER 2024-01-04 16:12 | Emergency (ER) | payer OTHER, MEDICAID, SELFPAY ==
--- NOTE | 2024-01-04 16:13 | ED.EAR ---
HPI - Ear Problem General Chief complaint: Ear Stated complaint: RIght and Left Ear Irritation Time Seen by Provider: 01/04/24 16:13 Source: patient Mode of arrival: ambulatory Limitations: no limitations History of Present Illness HPI Narrative: Isa is a 38-year-old female patient presenting to the clinic today with complaints of bilateral ear congestion. She reports that she had a cold last week and over the past 3 days she developed decreased hearing in the right ear and and now the left ear has started. She denies any fever or chills. Does feel like there is some pressure in her ears. Related Data Home Medications Medication Instructions Recorded Confirmed metoclopramide HCl 5 mg tablet 5 mg PO DAILY 04/02/23 01/04/24 (Reglan) sumatriptan succinate 50 mg tablet See Rx Instructions PO .COMPLEX 04/02/23 01/04/24 (Imitrex) Allergies Allergy/AdvReac Type Severity Reaction Status Date / Time pantoprazole Allergy Rash Verified 01/04/24 16:23 topiramate AdvReac Vomiting Verified 01/04/24 16:23 Review of Systems Review of Systems: Pertinent positives per HPI. Patient denies any fever, chills, rash, headache, visual changes, dizziness, cough, shortness of breath, chest pain, palpitations, nausea, vomiting, diarrhea, constipation, abdominal pain, or any urinary issues. PMFSH Past Medical History Medical History Bone cyst of left ankle Migraine Family History Family History Father Cerebrovascular accident Renal failure Diabetes mellitus Hypertension Mother Epilepsy Ovarian cancer Social History Social History Smoking status: Former smoker Second hand tobacco smoke exposure: Yes Smoking end date: 11/02/20 Substance use: never Living arrangements: with family Gender identity (if verbalized by the patient): Female Spiritual care concerns: No Comments At the time of my signature, I reviewed and agree with the nursing past medical, surgical, social, and family history. There is no relevant family history pertinent to the patient complaint. Exam Narrative: General: Well-developed, well nourished, in no apparent distress Head: Normocephalic, atraumatic Eyes: Pupils equally round and reactive to light bilaterally, EOM intact, sclera and conjunctive clear, no discharge, lids normal Ears: TMs intact, congestion, with fluid noted behind the TM, ear canals cerumenious, no drainage, grossly hearing normal. Nose: Nares patent, clear discharge, no inflammation, no sinus tenderness. Mouth: Oral pharynx without lesions or masses, good dentition, MMM. Neck: Supple, trachea midline, no enlargement of anterior or posterior cervical nodes, no thyroid masses or goiter palpable. Cardio: Regular rate and rhythm, s1 and s2 normal, no murmur appreciated. Resp: Clear to auscultation bilaterally, no rhonchi, rales, wheezing or rubs Course Course Emergency Course: Portions of this record may have been created with voice recognition software. Level of Care: Express Care Visit Vital Signs Vital signs: Vital signs reviewed Medical Decision Making MDM Narrative Medical decision making narrative: At the time of visit patient is resting comfortably on the exam table. Patient appears to be nontoxic. Plan: I suspect patient serous otitis media. Prescription for prednisone sent to pharmacy. Supportive measures were discussed with the patient and they voiced understanding discharge instructions and agrees to treatment plan. Return precautions reviewed Differential Diagnosis Differential Diagnosis: Otitis media, otitis externa, eustachian tube dysfunction, cerumen impaction, upper respiratory infection, serous otitis Discharge Plan Discharge Clinical Impression: Acute serous otitis media Qualifiers: Late
[2024-01-04 16:22] VITALS: BP 113/73; PULSE 86; RESP 16; TEMP 37; O2SAT 100
== END 2024-01-04 16:32 | disposition home or self-care (01) ==
PROVIDERS: Emergency Provider Nurse Practitioner Family; PCP Family Medicine
DX: H65.03 Acute serous otitis media, bilateral (principal); Z87.891 Personal history of nicotine dependence
CPT/HCPCS: 99213; G0463

== ENCOUNTER 2025-02-04 04:59 | Inpatient (IN) | payer OTHER, SELFPAY ==
[2025-02-04] VITALS (106 sets, daily range): BP systolic 92–137; BP diastolic 51–83; PULSE 70–162; RESP 16–18; TEMP 36.6–37.1; O2SAT 83–100; BMI 32.8
--- OUTSIDE RECORDS SUMMARY | 2025-02-04 05:07 | XMS_ITS | Encounter Summary ---
Author Organization [facility] Address [address] [place] [address] Care Team Providers Care Die Casting Supervisor Name Role Phone Polo Swann MD Primary Care Provider Reason for Visit * Reason Onset Date Comments Coordination Of Care 11/04/2024 Encounter Details Date Type Department Care Team (Late st Contact Info) Description 11/04/2024 Telephone [facility] - FINANCIAL SALES MANAGER [address] [place] [address] Lliiana Newman APRN-LONA [address] [place] [address] Coordination Of Care Social History Tobacco Use Types Packs/Day Years Used Date Smoking Tobacco: Never Assessed Comments Unknown Sex and Gender Information Value Date Recorded Sex Assigned at Not on file Legal Sex Female 11:01 AM CDT Gender Identity Not on file Sexual Orientation Not on file documented as of this encounter Miscellaneous Notes * Telephone Encounter - Joanna Key - 11/04/2024 3:24 PM CST Pt is being referred over by Dr Karel Rodriguez for velamentous cod insertion. She is currently 26 weeks . STRIAL ARTS TEACHER documented in this encounter Plan of Treatment Not on file documented as of this encounter Visit Diagnoses Not on filedocumented in this encounter Care Teams Die Casting Supervisor Relationship Specialty Start Date End Date Polo Swann MD [address] [place] [id number] PCP - General 01/28/19 documented as of this encounter
--- OUTSIDE RECORDS SUMMARY | 2025-02-04 05:08 | XMS_ITS | Clinical Summary ---
Author Organization [facility] Address [address] [place] [address] Care Team Providers Care Nuclear Weapons Specialist Name Role Phone Polo Swann MD Primary Care Provider [phone] Source Comments [facility],non-owned Affiliates and Associated Physician Practices is amultiple site organization consisting of ambulatory clinics and hospital sitesin [place], [place], [place] and [place]. This disclosure is being madepursuant to the Care Everywhere program and may not contain all information available regarding this patient. Last updated 18.[facility] Allergies Active Allergy Reactions Criticality Noted Date Comments Propranolol Nausea and/or Vomiting,Vomiting 07/12/2021 Patient states caused a really bad migraine. Vision changes Topiramate Nausea and/or Vomiting 10/25/2022 Made her feel funny Medications * Be aware that medications may not be up to date on this document. Alwaysverify current medications with the patient. SUMAtriptan (Imitrex) 100 MG tablet TAKE 1 TABLET BY MOUTH EVERY 2 HOURS NEEDED FOR SEVERE HEADACHE. MAX OF 2 TABS/24 HOURS. Active metoclopramide (Reglan) 5 MG tablet TAKE 1 TABLET BY MOUTH 4 TIMES DAILY (BEFORE MEALS AND NIGHTLY). Active onabotulinumtoxin A (Botox) 200 units injection Inject 155 (one hundred fifty five) Units into muscle 4 Active aspirin EC (Ecotrin) 81 MG tabletIndications :History of gestational hypertension Take 2 (two) tablets by mouth once daily 60 tablet 11 5 Active Active Problems Problem Noted Date Diagnosed Date Supervision of other normal , antepartu m 11/19/2024 Overview (11/19/2024): Blood Type: A Rh: positive Hgb: 12.9 Plt: 282 Rubella Status: Immune RPR: negative HIV: negative Pap: 07/10 - N/N NIPT: Low risk, male GCT: Tdap: declines Flu: 07/10 GBS: Velamentous insertion of umbilical cord, antepar sarahy 11/19/2024 Overview (11/19/2024): Monthly growth scans History of gestational hypertension 11/19/2024 Overview (11/19/2024): ASA Antepartum multigravida of advanced maternal age 0311/19/2024 Overview (11/19/2024): Low risk NIPT Migraine with aura and witho ut status migrainosus, not intractable 06/07/2020 Overview (11/19/2024): Controlled with botox and Imitrex Estimated Date of Delivery Comme nts Yes 02/09/2025 Based on last me nstrual period of 05/05/2024 Encounters Date Type Department Care Team Description 11/19/2024 9:30 AM CERTIFIED INDUSTRIAL HYGIENIST visit [facility] - [facility] [address] [place] [address] Glen Donaldson MD [place]: 28w2d 11/19/2024 8:15 AM CERTIFIED INDUSTRIAL HYGIENIST - 11/19/2024 11:59 PM CERTIFIED INDUSTRIAL HYGIENIST Hospital Encounter [facility]/ EVALUATION UNIT [address] [place] [address] John Ewing DO [employer]NER Discharge Disposition: Home or Self Care 11/19/2024 Travel from Last 3 Months Family History Medical History Relation Name Comments CAD (Coronary Artery Disease) Father DVT - Deep Vein Thrombosis Father Diabetes; unknown type Father High Cholesterol Father Hypertension Father Cancer - Ovarian Mother High Cholesterol Mother Relation Name Status Comments Father Mother Social History Tobacco Use Types Packs/Day Years Used Date Smoking Tobacco: Former Cigarettes Smokeless Tobacco: Never Tobacco Cessation:Counseling Given: No Alcohol Use Standard Drinks/Week Comments Not Currently 0 (1 standard drink = 0.6 oz pur e alcohol) PHQ-2 Answer Date Recorded Patient Health Questionnaire-2 Score 0 11/18/2024 Estimated Date of Delivery Comme nts Yes 02/09/2025 Based on last me nstrual period of 05/05/2024 Sex and Gender Information Value Date Recorded Sex Assigned at Not on file Legal Sex Female 11:01 AM CDT Gender Identity Not on file Sexual Orientation Not on file Last Filed Vital Signs Vital Sign Reading Time Taken Comments Blood Pressure 114/72 11/19/2024 9:26 AM CERTIFIED INDUSTRIAL HYGIENIST Pulse - - Temperature - - Respiratory Rate - - Oxygen Saturation - - Inhaled Oxygen Concentration - - Weight 99.3 kg (219 lb) 11/19/2024 9:26 AM CERTIFIED INDUSTRIAL HYGIENIST Height 172.7 cm (5' 8 ) 11/19/2024 9:26 AM CERTIFIED INDUSTRIAL HYGIENIST Body Mass Index 33.3 11/19/2024 9:26 AM CERTIFIED INDUSTRIAL HYGIENIST Plan of Treatment Health Maintenance Due Date Last Done Comments HEPATITIS C SCREENING 10/08/2005 DTAP/TDAP/TD VACCINES (1 - Tdap) 2006 HEPATITIS B VACCINE (1 of 3 - 19+ 3-dose series) 2006 COVID-19 VACCINE ( - season) 2024 OB-ONE HOUR GLUCOSE 11/03/2024 OB-TDAP CURRENT 11/10/2024 OB-RHOGAM INJECTION 11/17/2024 OB-GROUP B STREP SCREEN 01/05/2025 INFLUENZA VACCINE (Season Ended) 2025 09/18/2023, 08/29/2021, 08/26/2021, Additional history exists PAP SMEAR 07/31/2027 07/31/2024 ZOSTER VACCINE (1 of 2) 2037 HIV SCREENING Completed 07/15/2024 DEPRESSION SCREENING Completed 11/19/2024 HIB VACCINE Aged Out No longer eligi ble based on patient's age to complete this topic HPV VACCINE Aged Out No longer eligi ble based on patient's age to complete this topic MENINGOCOCCAL (Group B) VACCINE SHARED DECISION-MAKING Aged Out No longer eligible based on patient's age to complete this topic MENINGOCOCCAL GROUPS A/C/Y/W VACCINE Aged Out No longer eligible based on patient's age to complete this topic PNEUMOCOCCAL VACCINE Aged Out No long er eligible based on patient's age to complete this topic Respiratory Syncytial Virus (RSV) Vaccine Pt: or over 60 yrs (No Doses Required) Completed Procedures Procedure Name Priority Date/Time Associated Diagnosis Comments SONOGRAM - COMPLETE Routine 11/19/2024 8 :44 AM CERTIFIED INDUSTRIAL HYGIENIST Screening, , for anatomic survey from Last 3 Months Results * SONOGRAM - COMPLETE (11/19/2024 8:44 AM CERTIFIED INDUSTRIAL HYGIENIST) Linked Results Indication ======== Velamentous CI seen on outside scan Advanced Maternal Age History of gHTN History ====== OB History 6. Para 4 [id number] Lab Tests Test Date Result NIPT Low risk Maternal Assessment Physical Exam Height 170 cm, 5 ft 7 in. Weight 100 kg, 220 lb. Initial weight 94 kg, 208 lb. BMI 34.46 kg/m . Initial BMI 32.58 kg/m . Weight gain 5 kg, 12 lb Method ====== Transabdominal ultrasound. View: Suboptimal view: limited by late gestational age ========= Lopez . Number of fetuses: 1 Dating ====== Date Details Gest. age CHRISTIE LMP 05/05/2024 28 w + 2 d 02/09/2025 U/S 11/19/2024 based upon AC, BPD, Femur, HC 28 w + 6 d 02/05/2025 Assigned dating based on the LMP, selected on 11/19/2024 28 w + 2 d 02/09/2025 General Evaluation Cardiac activity present. FHR 145 bpm. Presentation: breech Placenta: Placental site: posterior no previa Umbilical cord: Cord vessels: 3 vessel cord. Insertion site: velamentous insertion Amniotic fluid: Amount of AF: normal. MVP 6.6 cm. TATE 15.4 cm. Q1 6.6 cm, Q2 5.1 cm, Q3 3.8 cm, Q4 0.0 cm Biometry BPD 70.1 mm 28w 1d 34% Hadlock HC 273.4 mm 29w 6d 68% Hadlock Cerebellum tr 34.5 mm 72% [place] AC 253.5 mm 29w 4d 79% Hadlock Femur 51.7 mm 27w 4d 18% Hadlock Humerus 48.7 mm 28w 4d 52% Agustin HC / AC 1.08 -/- Hadlock Weight Calculation: EFW 1,293 g 58% Hadlock EFW (lb,oz) 2 lb 14 oz EFW by Hadlock ([id number]) Head / Face / Neck Biometry: Tracer Powder Blender 3.1 mm CM 6.8 mm 51% Nicolaides appropriate Growth Overview Exam date GA BPD (mm) HC (mm) AC (mm) FL (mm) HL (mm) EFW (g) 11/19/2024 28w 2d 70.1 34% 273.4 68% 253.5 79% 51.7 18% 48.7 52% 1293 58% Anatomy The following structures appear normal: Head / Neck Cranium. Lateral ventricles. Choroid plexus. Midline falx. Cavum septi pellucidi. Cerebellum. Cisterna magna. Thalami. Face Lips. Profile. Nose. Nasal bone. Orbits. Heart / Thorax 4-chamber view. LVOT view. 3-vessel view. 2-kmnghp-kgnnedo view. Situs. Aortic arch view. Bicaval view. Ductal arch view. Great vessels. Right lung. Left lung. Diaphragm. Abdomen Cord insertion. Stomach. Kidneys. Bladder. Bowel. Genitals. Spine Cervical spine. Thoracic spine. Extremities / Skeleton Arms. Hands. Legs. Feet. The following structures could not be adequately visualized: Heart / Thorax RVOT view. Spine Lumbar spine. Sacral spine. sex: male. Maternal Structures Right Ovary Not visualized Left Ovary Not visualized Impression ========= Here today for re-evaluation of a velamentous cord insertion noted on prior ultrasound at her primary OB providers office (Dr. Rodriguez ). She is AMA and had opted for NIPT which was reported as low risk. Single live intrauterine at 28w 2d The CHRISTIE is 02/09/2025 size is appropriate for the established gestational age The amniotic fluid volume: normal Normal appearing posterior placenta with velamentous cord insertion No major malformations were seen within the limitations of ultrasound. But certain structures remains suboptimally visualized due to positioning and advanced gestational age. Comment ======== the biometry showing good interval growth in the estimated weight is appropriate for the gestational age. There was confirmation of velamentous cord insertion on normal-appearing posterior placenta. A velamentous cord insertion has been associated with low weight infants increased risk for and potential for abruption. Therefore will recommend serial growth ultrasounds and depending on those findings also determine need for additional testing. The anatomical survey showed no gross abnormalities however certain structures remains suboptimally visualized due to positioning and advanced gestational age Which limited the overall study. Both ultrasound and screening/testing have their limitations in detecting all congenital anomalies and chromosomal abnormalities/inh erited disorders or genetic syndromes. Follow-up ======== To return in 4 weeks for interval growth ultrasound and completion of the anatomical survey. Thereafter would also recommend continuation of serial growth ultrasounds due to her co morbidities of AMA and velamentous cord insertion. Depending on those findings also determine need for additional testing. labor and preeclampsia precautions along with kick counts. Thank you for allowing us to partake in your patient's care. Coding ====== Procedures 84004: US Preg Uterus Detailed Exoprise PACS Anatomical Region Laterality Modality Other 11/19/2024 8:44 AM CERTIFIED INDUSTRIAL HYGIENIST us Harlan Guerrero MD [facility] ORDERABLES Edited Result - Final from Last 3 Months Insurance MEDICAID - [place] Care Teams Nuclear Weapons Specialist Relationship Specialty Start Date End Date Polo Swann MD [address] [place] [id number] PCP - General 01/28/19
--- OUTSIDE RECORDS SUMMARY | 2025-02-04 05:08 | XMS_ITS | Clinical Summary ---
Author Organization [facility] Address [address] [place] [address] Phone Care Team Providers Care Radiology Aide Name Role Phone Polo Swann MD Primary Care Provider [phone] Allergies Active Allergy Reactions Criticality Noted Date Comments Propranolol Other (See Comments) 07/12/2021 Patient states caused a really bad migraine. Medications ondansetron (Zofran ODT) 4 mg Tablet, Rapid Dissolve Take 1 Tablet (4 mg) by mouth every 8 hours as needed for Nausea/Emesis. Dissolve tablet on top of tongue, then swallow with saliva. 30 Tablet 1 03/17/20 21 Active erenumab-aooe (AIMOVIG) 70 mg/mL Auto-InjectorIn dications:Migra ine with aura and without status migrainosus, not intractable Inject 1 mL (70 mg) by subcutaneous injection every 30 days. 1 mL 5 03/17/20 21 Active Cetirizine (ZyrTEC) 10 mg Capsule Zyrtec 10 mg capsule Active acetaminophen-c affeine-butalbi vane (Fioricet) 300-40-50 mg capsule Fioricet 50 mg-300 mg-40 mg capsule take 1 capsule by oral route every 4-6 hours as needed not to exceed 6 capsules per 24hrs Active vit calc,iron,folic ( VITAMIN ORAL) Active acetaminophen (TylenoL) 325 mg tablet Take 650 mg by mouth every 6 hours as needed. Active meclizine (ANTIVERT) 25 mg tablet 07/24/20 21 Active rizatriptan (MAXALT) 5 mg Tablet Take 5 mg by mouth every 2 hours as needed for Migraine. may repeat in 2 hours; max dose 30mg in 24 hours Active SUMAtriptan (IMITREX) 100 mg tablet Take 100 mg by mouth see administration instructions. may repeat in 2 hours; max dose 200mg in 24 hours Active gabapentin (NEURONTIN) 300 mg capsule Take 1 Capsule (300 mg) by mouth 3 times daily. 90 Capsule 2 03/09/20 22 Active SUMAtriptan succinate (Zembrace Symtouch) 3 mg/0.5 mL Pen Injector Inject 3 mg by subcutaneous injection every 2 hours as needed for Other (See Comment) (Migraine). 12 Each 1 03/09/20 Active Active Problems Problem Noted Date Diagnosed Date Migraine with aura and witho ut status migrainosus, not intractable 08/06/2020 Social History Tobacco Use Types Packs/Day Years Used Date Smoking Tobacco: Former Cigarettes 0.3 10 0 11/06/2010 - 11/06/2020 Smokeless Tobacco: Never Tobacco Cessation:Ready to Q uit: Yes Alcohol Use Standard Drinks/Week Comments Not Currently 0 (1 standard drink = 0.6 oz pur e alcohol) Comments No Sex and Gender Information Value Date Recorded Sex Assigned at Not on file Legal Sex Female 9:50 AM CDT Gender Identity Not on file Sexual Orientation Not on file Last Filed Vital Signs Vital Sign Reading Time Taken Comments Blood Pressure 120/74 07/12/2021 8:50 AM CDT Pulse 74 07/12/2021 8:50 AM CDT Temperature 36.3 C (97.4 F) 08/06/2020 8:00 AM DISTILLERY SUPERVISOR Respiratory Rate - - Oxygen Saturation 98% 07/12/2021 8:50 AM CDT Inhaled Oxygen Concentration - - Weight 99.8 kg (220 lb) 09/21/2021 10:17 AM DISTILLERY SUPERVISOR Height 175.3 cm (5' 9 ) 09/21/2021 10:17 AM DISTILLERY SUPERVISOR Body Mass Index 32.49 09/21/2021 10:17 AM DISTILLERY SUPERVISOR Plan of Treatment Health Maintenance Due Date Last Done Comments DTAP/TDAP/TD VACCINES (1 - Tdap) 2006 HEPATITIS B VACCINES (1 of 3 - 19+ 3-dose series) 2006 HPV/Cotest (21-29) 2008 CERVICAL CANCER SCREENING 2017 HPV/Cotest (30-65) 2017 PAP SMEAR 2017 INFLUENZA VACCINE (#1) 2024 08/29/2021 HPV VACCINES Aged Out No longer eligi ble based on patient's age to complete this topic Insurance PPO [employer] Care Teams Radiology Aide Relationship Specialty Start Date End Date Polo Swann MD [address] [place] [address] PCP - General Family Practice 08/04/20
--- OUTSIDE RECORDS SUMMARY | 2025-02-04 05:08 | XMS_ITS | Clinical Summary ---
Author Organization [facility] Address [address] [place] [address] Phone Care Team Providers Care Label Fuser Tender Name Role Phone Polo Swann MD Primary Care Provider [phone] Laci Tripp MD Unavailable [phone] Maryjane Landers APRN, SENIOR PRODUCTION SUPERVISOR Unavailable [phone] Allergies Active Allergy Reactions Criticality Noted Date Comments Sumatriptan Itching 10/25/2022 [place] like throat was closing Propranolol Vomiting 10/25/2022 Vision changes Topiramate Other (see Comments) 10/25/2022 Made her feel funny Medications SUMAtriptan (IMITREX) 100 MG Tablet Take 100 mg by mouth daily as needed. Use as directed. May repeat dose in 2 hours if headache recurs. Active atenolol (TENORMIN) 25 MG Tablet Take 0.5 Tablets by mouth daily. 30 Tablet 3 3 Active cyclobenzaprine (FLEXERIL) 5 MG Tablet Take 1 Tablet by mouth 3 times daily as needed for Muscle spasms. 15 Tablet 4 Active methylPREDNISolo ne (MEDROL DOSPACK) 4 MG Tablet Therapy Pack See product package insert for dosing schedule 21 Tablet 4 Active metoclopramide (REGLAN) 5 MG Tablet Take 1 Tablet by mouth 4 times daily (before meals and nightly). 30 Tablet 3 4 Active diphenhydrAMINE (BENADRYL) 25 MG CapsuleIndicatio ns:Chronic migraine with aura without status migrainosus, not intractable Take 1 Capsule by mouth every 6 hours as needed (migraine). 30 Capsule 4 Active ketorolac (TORADOL) 10 MG TabletIndication s:Chronic migraine with aura without status migrainosus, not intractable TAKE 3 TABLETS BY MOUTH NEEDED (MIGRAINE). 15 Tablet 5 Active Active Problems No known active problems Encounters Date Type Department Care Team Description 01/22/2025 Telephone [facility] [place] [address] [place] [address] Maryjane Landers APRN, HONORIO 12/19/2024 9:00 AM CDT Procedure Visit [facility] [place] [address] [facility] [address] Laci Tripp MD Chronic migraine with aura without status migrainosus, not intractable Discharge Disposition: Discharged to home or Selfcare 12/19/2024 Travel 12/09/2024 Telephone [facility] [place] [address] [place] [address] Laci Tripp MD 12/02/2024 Telephone [facility] [place] [address] [facility] [place] [address] Maryjane Landers APRN, SENIOR PRODUCTION SUPERVISOR from Last 3 Months Family History Medical History Relation Name Comments Diabetes Father Heart Attack Father Hypertension Father Renal Failure Father Stroke Father Cancer Maternal Grandmother High Cholesterol Mother Seizures Mother Relation Name Status Comments Father Maternal Grandmother Mother Alive Social History Tobacco Use Types Packs/Day Years Used Date Smoking Tobacco: Every Day Cigarettes Smokeless Tobacco: Never Tobacco Cessation:Ready to Q uit: Yes; Counseling Given: Not Answered Comments:2 cigarettes daily Alcohol Use Standard Drinks/Week Comments Not Currently 0 (1 standard drink = 0.6 oz pur e alcohol) Comments Unknown Sex and Gender Information Value Date Recorded Sex Assigned at Not on file Legal Sex Female 10:01 AM REMEDIAL PROJECT MANAGER Gender Identity Not on file Sexual Orientation Not on file Last Filed Vital Signs Vital Sign Reading Time Taken Comments Blood Pressure 132/74 10/28/2023 4:17 PM REMEDIAL PROJECT MANAGER Pulse 96 10/28/2023 4:17 PM REMEDIAL PROJECT MANAGER Temperature 36.8 C (98.2 F) 10/28/2023 4:17 PM REMEDIAL PROJECT MANAGER Respiratory Rate 16 10/28/2023 4:17 PM REMEDIAL PROJECT MANAGER Oxygen Saturation 96% 10/28/2023 4:17 PM REMEDIAL PROJECT MANAGER Inhaled Oxygen Concentration - - Weight 90.5 kg (199 lb 8.3 oz) 10/28/2023 4:17 P M REMEDIAL PROJECT MANAGER Height 172.7 cm (5' 8 ) 10/28/2023 4:17 PM REMEDIAL PROJECT MANAGER Body Mass Index 30.34 10/28/2023 4:17 PM REMEDIAL PROJECT MANAGER Plan of Treatment Upcoming Encounters Date Type Department Care Team (Late st Contact Info) Description 03/13/2025 9:00 AM CDT Procedure Visit [facility] [address] [place] [address] Laci Tripp MD [address] [place] [address] Health Maintenance Due Date Last Done Comments Hepatitis B Immunization (1 of 3 - 19+ 3-dose series) 2006 Pneumococcal Immunization Combined (1 of 2 - PCV) 2006 Pap Smear 2008 Cervical Cancer Screening (CCS) 2017 HPV/Cotest 2017 SARS-COV-2 Immunization ( season) 2024 Respiratory Syncytial Virus (RSV) Immunization (Adult) (1 - 1-dose 75+ series) 2062 DTaP/Tdap/Td Immunization Discontinued 07/08/2020 TdaP Immunization Completed 07/08/2020 Influenza Immunization Completed , 09/18/2023, 08/29/2021, Additional history exists Hepatitis C Virus (HCV) Screening Completed 07/15/2024 Human Papillomavirus (HPV) Immunization Aged Out No longer eligible based on patient's age to complete this topic Meningococcal Immunization (ACWY) Aged Out No longer eligible based on patient's age to complete this topic Rotavirus Immunization Aged Out No lo nger eligible based on patient's age to complete this topic Procedures Procedure Name Priority Date/Time Associated Diagnosis Comments CHEMODENERV MUSCLE(S) BILAT FACIAL/TRIGEMINAL/CE RV SPINE Routine 12/19/2024 9:00 AM CDT Chronic migraine with aura without status migrainosus, not intractable from Last 3 Months Results * CHEMODENERV MUSCLE(S) BILAT FACIAL/TRIGEMINAL/CERV SPINE (12/19/2024 9:00 AM CDT) Narrative Laci Tripp MD - 12/19/2024 9:00 AM CDT Laci Tripp MD 12/19/2024 3:31 PM Isa presents for administration of botox for treatment of chronic migraines. Frequency of headaches compared to pre-Botox: significantly improved Function since receiving Botox: significantly improved Wasted amount of Botox: 45 Her skin was prepped with an alcohol wipe. Botox was diluted with 200 units into 4 ml saline and administered with a 30 gauge 1/2 inch needle to the following sites: To the corrugators 10 units was divided into two sites. To the procerus 5 units was admistered to 1 site To the frontalis 20 units was divided into 4 sites To the temporalis 40 units was divided into 8 sites To the Occipitalis 30 units was divided into 6 sites To the cervical paraspinals 20 units divided into 4 sites To the trapezius 30 units divided into 6 sites. This procedure has been fully reviewed with the patient and written informed consent has been obtained. Patient tolerated the procedure with no complications. Laci Tripp MD [place] - [facility] Final Result from Last 3 Months Insurance [facility] MEDICAID [place] [facility] on file Care Teams Label Fuser Tender Relationship Specialty Start Date End Date Polo Swann MD [address] [place] [address] PCP - General Pediatrics 09/20/22 Laci Tripp MD [address] [place] [address] Consulting Physician Neurology 07/02/23 Maryjane Landers APRN, SENIOR PRODUCTION SUPERVISOR [address] [place] [address] Nurse Practitioner Advanced Practice Nurse 10/25/22
--- OUTSIDE RECORDS SUMMARY | 2025-02-04 05:08 | XMS_ITS | Encounter Summary ---
Author Organization [facility] Address [address] [facility] [place] [address] Phone Care Team Providers Care [facility] Name Role Phone Polo Swann MD Primary Care Provider [phone] Laci Tripp MD Unavailable [phone] Maryjane Landers APRN, [employer] WE[employer] MACHINE OPERATOR Unavailable [phone] Reason for Visit * Reason Comments Medication Refill Encounter Details Date Type Department Care Team (Late st Contact Info) Description 10/06/2023 Refill [facility] [address] [place] [address] Laci Tripp MD [address] [place] [address] Medication Refill Social History Tobacco Use Types Packs/Day Years Used Date Smoking Tobacco: Every Day Cigarettes Smokeless Tobacco: Never Comments:2 cigarettes daily Alcohol Use Standard Drinks/Week Comments Not Currently 0 (1 standard drink = 0.6 oz pur e alcohol) Comments Unknown Sex and Gender Information Value Date Recorded Sex Assigned at Not on file Legal Sex Female 10:01 AM DEPUT[employer]ERIFF C[employer]ODY Gender Identity Not on file Sexual Orientation Not on file documented as of this encounter Miscellaneous Notes * Telephone Encounter - Patti Siegel RN - 10/08/2023 10:32 AM CST Medication failed the protocol, provider to review and approve the medication order if appropriate. Requested Prescriptions Pending Prescriptions Disp Refills Botox 200 units Recon Soln [Pharmacy Med Name: BOTOX 200 UNIT SDV PWD] 1 Each 2 Sig: INJECT 155 UNITS INTO THE FACIAL MUSCLES EVERY 12 WEEKS PER CHRONIC MIGRAINE PROTOCOL (DISCARDUNUSED PORTION) Not Delegated - Off Protocol Failed - 10/06/2023 1:24 AM Failed - This refill cannot be delegated Passed - Visit with relevant provider in past 12 months or upcoming 90 days Recent Visits Date Type Provider Dept 08/08/23 Procedure Visit Laci Tripp MD [facility] Neurology [facility] 05/31/23 Telemedicine Maryjane Landers APRN, [facility] 05/11/23 Procedure Visit Laci Tripp MD [facility] 02/16/23 Procedure Visit Laci Tripp MD [facility] 01/24/23 Telemedicine Maryjane Landers APRN [facility] 11/24/22 Procedure Visit Laci Tripp MD [facility] 10/25/22 Office Visit Maryjane Landers APRN, [facility] Showing recent visits within past 365 days and meeting all other requirements Future Appointments Date Type Provider Dept 11/02/23 Appointment Laci Tripp MD [facility] Showing future appointments within next 90 days and meeting all other requirements TY SHERIFF CUSTODY documented in this encounter Plan of Treatment Upcoming Encounters Date Type Department Care Team (Late st Contact Info) Description 03/13/2025 9:00 AM CDT Procedure Visit [facility] - Neurology - [place] [address] [place] [address] Laci Tripp MD [address] [place] [address] documented as of this encounter Visit Diagnoses Diagnosis Chronic migraine with aura without status migrainosus, not intractable- Primary documented in this encounter Care Teams Him Specialists Relationship Specialty Start Date End Date Polo Swann MD [address] [place] [address] PCP - General Pediatrics 09/20/22 Laci Tripp MD [address] [place] [address] Consulting Physician Neurology 07/02/23 Maryjane Landers APRN, [employer] WE[employer] MACHINE OPERATOR [address] [place] [address] Nurse Practitioner Advanced Practice Nurse 10/25/22 documented as of this encounter
--- NOTE | 2025-02-04 05:22 | LDADM ---
This patient, Isa Tijerina, was admitted to Labor/Delivery/Recovery 105 on 02/04/25 at 04:59. Plans for labor, pain management and were discussed with patient. Patient/family oriented to hospital policies and general routines including ID bracelet, bed and alarms, visiting hours, pain management, procedures, bathroom and other care routines, personal items, smoking policy, room service/diet and guest tray routines, security routines, and visiting hours. Patient/Family are encouraged to report perceived risks to care and to ask questions if they do not understand what they are told or what they should do. See OBIX for further documentation.
[2025-02-04 05:51] LABS: Basophils Absolute Auto 0.1 K/mm3 (0.0-0.1); Basophils Percent Auto 0.5 % (0.2-1.2); Eosinophils Absolute Auto 0.1 K/mm3 (0-0.3); Eosinophils Percent Auto 0.7 % (0-4.4); Hematocrit 36.3 % (37.0-47.0); Hemoglobin 11.6 g/dL (12.0-15.0); Immature Granulocyte Absolute 0.06 K/mm3 (0.00-0.031); Immature Granulocyte Percent A 0.6 % (0-0.5); Lymphocytes Absolute Auto 1.81 K/mm3 (0.9-3.2); Lymphocytes Percent Auto 16.9 % (18.3-44.2); Mean Corpuscular Hemoglobin 27.4 pg (26-34); Mean Corpuscular Volume 85.8 fl (80-100); Mean Platelet Volume 10.9 fl (7.4-10.4); Monocytes Absolute Auto 0.7 K/mm3 (0.1-0.6); Monocytes Percent Auto 6.9 % (2.6-8.5); Neutrophils Percent Auto 74.4 % (45.5-73.1); Platelet Count Result 197 k/mm3 (150-375); Red Blood Count 4.23 M/mm3 (4.2-5.4); Red Cell Distribution Width 13.7 % (11.5-14.5); White Blood Count 10.7 K/mm3 (4.5-10.0)
[2025-02-04] MEDS: LACTATED RINGERS 1,000 ML 125 ML IV CONT ×2 (06:20→07:20)
--- NOTE | 2025-02-04 06:22 | WPDANESEPP ---
Anes - Eval Pre Procedure Procedure: labor pain managment Date/Time: 02/04/25 06:22 Surgeon: Michael Preop Diagnosis: pain during labor Pre Op Diagnosis: IOL Patient Data Age: 39 Gender: F Height: 1.75 m Weight: 100.9 kg Last Vital Signs Pulse 86 02/04/25 06:00 BP 121/77 02/04/25 06:00 O2 Del Method Room Air 02/04/25 05:22 Allergies Allergy/AdvReac Type Severity Reaction Status Date / Time pantoprazole Allergy Rash Verified 02/04/25 06:04 topiramate AdvReac Vomiting Verified 02/04/25 06:04 Home Medications ?Medication ?Instructions ?Recorded ?Confirmed ?Type metoclopramide HCl 5 mg tablet 5 mg PO DAILY 04/02/23 01/23/25 History (Reglan) sumatriptan succinate 50 mg tablet See Rx Instructions PO .COMPLEX 04/02/23 01/23/25 History (Imitrex) onabotulinumtoxinA 200 unit 200 unit IM .q3 months migraine 01/23/25 01/23/25 History solution for injection (Botox) vits no.130-ferrous fum 1 tablet PO DAILY 01/23/25 02/04/25 History 27 mg iron-folic acid 800 mcg tablet ( Vitamin) Laboratory Tests 02/04/25 05:43 WBC 10.7 H K/mm3 (4.5-10.0) RBC 4.23 M/mm3 (4.2-5.4) Hgb 11.6 L g/dL (12.0-15.0) Hct 36.3 L % (37.0-47.0) MCV 85.8 fl (80-100) MCH 27.4 pg (26-34) MCHC 32.0 g/dl (32-36) RDW 13.7 % (11.5-14.5) Plt Count 197 k/mm3 (150-375) MPV 10.9 H fl (7.4-10.4) Immature Gran % (Auto) 0.6 H % (0-0.5) Neut % (Auto) 74.4 H % (45.5-73.1) Lymph % (Auto) 16.9 L % (18.3-44.2) [place] % (Auto) 6.9 % (2.6-8.5) Eos % (Auto) 0.7 % (0-4.4) Baso % (Auto) 0.5 % (0.2-1.2) Lymph # (Auto) 1.81 K/mm3 (0.9-3.2) [place] # (Auto) 0.7 H K/mm3 (0.1-0.6) Eos # (Auto) 0.1 K/mm3 (0-0.3) Baso # (Auto) 0.1 K/mm3 (0.0-0.1) Abs Immat Gran (auto) 0.06 H K/mm3 (0.00-0.031) Absolute Neuts (auto) 8.0 H K/mm3 (1.3-6.7) Absolute Nucleated RBC 0.000 K/mm3 (0.0-0.012) Nucleated RBC % 0.0 % (0.0-0.2) HIV 1&2 Ab/P24 Ag 4thGn Pending Blood Type Pending Antibody Screen Pending Patient hx anesthesia problems: none Family hx anesthesia problems: none Results Review: All pre-operative results and documents have been reviewed as part of the pre-operative evaluation. [facility] Past Medical History Medical History Bone cyst of left ankle Migraine Family History Family History Father Diabetes mellitus Renal failure Hypertension Cerebrovascular accident Mother Epilepsy Ovarian cancer Social History Social History Smoking status: Current some day smoker Tobacco type: cigarettes Second hand tobacco smoke exposure: Yes Smoking end date: 11/02/20 Substance use: never Do You Feel Safe in your Home?: Yes Lack of Transportation: No Lack of Food: Never True Current Housing: I Have Housing Concerned About Future Housing: No Difficulty Paying Gas/Electric Bills: No Difficulty Paying for Meds: No Currently Unemployed: No Education: Bachelor's Degree Difficulty w/ Childcare or Family Care: No Living arrangements: with family Gender identity (if verbalized by the patient): Female Spiritual care concerns: No Exam Day of Procedure 02/04/25 06:22
[2025-02-04 06:41] LABS: Syphilis IgG/IgM Antibody Negative (Negative)
[2025-02-04 06:47] LABS: HIV 1/2 Ab P24 Ag Result Negative (Negative)
[2025-02-04] MEDS: OXYTOCIN 30 UNITS/NS 500 ML 30 UNITS/500 ML BAG IV CONT (07:30)
--- NOTE | 2025-02-04 08:51 | WPDHPUPDATE1 ---
History and Physical Update Update Date/Time: 02/04/25 08:51 Elective induction of labor and a grand multip at 39 weeks. Mild poly, copious fluid at rupture of membranes. Clear fluid. Cyst 5 cm/50%/-4. Infant's head lost station and with rupture of membranes. Reassuring status. No cord prolapse. Active management of labor. History and Physical has been reviewed, including an updated exam of the patient. There are NO changes in the patient's condition. Risks, benefits, and alternatives have been discussed and questions answered. Patient agrees to proceed with procedure.
--- NOTE | 2025-02-04 11:54 | PM.OBPRVD ---
OB - Vaginal Delivery Note Procedure Delivery date: 02/04/25 Induction method: AROM and Per Pitocin Protocol Delivery monitor: External FHT and External Uterine Route of delivery: Episiotomy description: None Laceration Description: Perineal - 1st Degree Delivery repair: vicryl Quantitative Blood Loss (ml): 450 Anesthesia type: Epidural Disposition: Floor Complications: No immediate complications
[2025-02-04] MEDS: OXYTOCIN 30 UNITS/NS 500 ML 30 UNITS/500 ML BAG 125 UNITS IV CONT (12:16)
[2025-02-04] MEDS: WITCH HAZEL 40 PADS 1 PAD TOPICAL (14:09)
[2025-02-04] MEDS: IBUPROFEN 600 MG TABLET PO ×2 (14:09→23:10)
[2025-02-04] MEDS: BENZOCAINE 20% AER SPR (*SP) 56 GM CAN 1 SPRAY TOPICAL (14:09)
--- NOTE | 2025-02-04 14:25 | PC.NURSE ---
Patient transferred to post room #281 via wheelchair. Support person present. Oriented to unit, room, information board, rooming in, admission packet and security measures. Patient verbalizes understanding.
[2025-02-05 04:30] VITALS: BP 105/66; PULSE 65; RESP 16; TEMP 36.8; O2SAT 100
[2025-02-05 05:20] LABS: Hematocrit 28.3 % (37.0-47.0); Hemoglobin 9.2 g/dL (12.0-15.0)
[2025-02-05 08:00] VITALS: PULSE 80; RESP 18; O2SAT 98
[2025-02-05 08:10] VITALS: BP 119/77; PULSE 80; RESP 18; TEMP 37.1; O2SAT 98
--- NOTE | 2025-02-05 08:24 | P.PNOB_ITS ---
OB - PN: Subj Subjective Date/time seen: 02/05/25 08:24 Patient comments: no complaints, pain well controlled, incisional pain, tolerating diet and flatus present OB - PN: Obj Data Labs 02/05/25 04:10 Labs: Laboratory Results - last 24 hr 02/05/25 04:10 Hgb 9.2 L Hct 28.3 L OB - PN A/P Plan day: 1 Plan: routine care Comments: No problems, routine care Time Spent With Patient Time: Total time spent is greater than 50% in coordination of care (as documented) at patient's floor/unit and/or counseling patient: Exam 2 Const: General: comfortable, no acute distress and alert Resp: Effort & Inspection: normal respiratory effort Auscultation: no crackles, no rales and no rhonchi Cardio: Rate: regular rate Heart sounds: no click, no murmurs and no rubs GI: Inspection: non-distended GI Palp: No Tenderness to palpation present (GI) Auscultation: normal bowel sounds Other: Incision - CDI Extrem: General: normal to inspection, no pedal edema and no calf tenderness
--- NOTE | 2025-02-05 08:25 | PM.OBDSVD ---
DS: Admitting Diagnosis Discharge Date 02/05/25 Admitting Diagnosis term DS: Discharge Diagnosis Discharge Diagnosis (1) Term delivered: Code(s): O80 - Encounter for full-term uncomplicated delivery Status: Acute OB - DS: Summary OB Procedures : None OB Procedures Intrapartum: Spontaneous Vag Delivery OB Procedures: : None Peripartum Data Laceration Description: Perineal - 1st Degree Episiotomy description: None Time Spent with Patient Time attestation: Total time spent providing and/or coordinating discharge services: DS: Data Data Completed and Pending Labs on day of discharge: Labs from last 24 hours 02/05/25 04:10 Hgb 9.2 L Hct 28.3 L Discharge Plan Discharge Discharging Clinician: Karel Rodriguez Patient Disposition: Home Activity: pelvic rest Diet: regular Patient Instructions: Antibiotic Form Patient Language: Australian Stand Alone Forms: General Discharge Information Follow-up/Referrals: Karel Rodriguez MD [Physician] - Discharge Medications: Continued sumatriptan succinate [Imitrex] 50 mg tablet See Rx Instructions PO .COMPLEX Rx Instructions: take 1 tab at onset of headache; if no relief may repeat 1 tab after at least 2 hrs; max = 4 tabs/24 hr PO metoclopramide HCl [Reglan] 5 mg tablet 5 mg PO DAILY Botox 200 unit recon soln 200 unit IM .q3 months Rx Instructions: divided among affected muscles Vitamin 27 mg iron- 800 mcg tablet 1 tablet PO DAILY Date of admission: 02/04/25 04:59 Primary Care Provider: Polo Swann Admitting Provider: Karel Rodriguez Attending physician on admission: Karel Rodriguez Condition: Stable
[2025-02-05] MEDS: DOCUSATE SODIUM 100 MG CAPSULE PO (10:41)
[2025-02-05] MEDS: IBUPROFEN 600 MG TABLET PO (10:41)
[2025-02-05] MEDS: MULTIVIT/MIN/PREN/FOL AC/IRON TABLET 1 TAB PO (10:41)
[2025-02-05] MEDS: POLYSACCHARIDE IRON COMPLEX 150 MG CAPSULE PO (10:43)
--- NOTE | 2025-02-05 15:00 | PC.NURSE ---
Consulted with mother concerning needs and she shared her ability to independently latch infant optimally with the nipple shield. She used a nipple shield with previous children throughout their journey. Mom is encouraged to pump 4-6 times a day to promote a good milk supply. She has a lot of experience and knows how to do paced bottle feeding. She had a NICU baby and received a lot of feeding support from the nurses there. Mother is feeding appropriately for growth of infant and understands stimulating infant to eat if needed. Infant has had appropriate feedings in the last 24 hours meets the outcomes for weight, output, blood sugar and jaundice at this time. Reinforced understanding of milk production, plugged ducts, mastitis, community resources, and when to call a provider using the resource of the feeding sheet along with the mom and baby guide. Mom has a breast pump at home. Mother voiced understanding of the information shared, is confident to continue effectively her infant at home, when to call for assistance, denies any additional assistance or education at this time. Reported to the Primary RN.
--- NOTE | 2025-02-05 18:53 | PC.NURSE ---
1220-Patient was given the opportunity to view the discharge video Mother & Baby Care, The First Two Weeks and to ask questions. Patient declined viewing the video and has been given the mother/baby guide for home reference.
[2025-02-06 09:29] VITALS: BP 112/76; PULSE 79; RESP 18; TEMP 36.8; O2SAT 100
== END 2025-02-05 16:20 | disposition home or self-care (01) | DRG 807 ==
LOC: ANHLDR 05:06 → ANHOB2 14:27
PROVIDERS: Admitting Provider Obstetrics & Gynecology; PCP Family Medicine; Visit Provider Obstetrics & Gynecology
DX: O70.0 First degree perineal laceration during delivery (principal); Z37.0 Single live birth; Z3A.39 39 weeks gestation of pregnancy
CPT/HCPCS: 36415; 85014; 85018; 85025; 86593; 86703; 86850; 86900; 86901; A9270; G0432; J2590; J2795; J7120